=== PATIENT | male | born 1990 | race African-American/Black ===

== ENCOUNTER 2023-07-15 06:30 | Emergency (ER) | payer MEDICAID ==
[~2023-07-15] VITALS: Ht 170.2 cm; Wt 70.0 kg
[2023-07-15 06:40] VITALS: TEMP 98.3; O2SAT 98
[2023-07-15] MEDS ORDERED: TRAMADOL HCL/ACETAMINOPHEN 37.5/325MG TABLET PO ONE (08:30)
[2023-07-15 09:10] LABS: TROPONIN I HIGH SENSITIVITY 5 ng/L (3.0-53)
[2023-07-15 11:55] VITALS: BP 121/75; PULSE 99; RESP 16
== END 2023-07-15 11:55 | disposition home or self-care (01) ==
LOC: ER 06:30
DX: R07.89 Other chest pain (principal); F15.10 Other stimulant abuse, uncomplicated
CPT/HCPCS: 36415; 71045; 84484; 93005; 99285